=== PATIENT | female | born 1980 | race Caucasian/White ===

== ENCOUNTER 2018-07-07 12:33 | Emergency (ER) | payer BC ==
[2018-07-07 14:43] VITALS: BP 144/90
--- NOTE | 2018-07-07 15:20 | UC ---
Throat Pain/Nasal Damien HPI - HPI Summary HPI Summary: Onset yesterday of sore throat, ear pain and headache. No fever, nausea/ vomiting. No cough. Mild nasal congestion. - History of Current Complaint Chief Complaint: UCGeneralIllness Stated Complaint: SORE THROAT,BILATERAL EAR ACHE Time Seen by Provider: 07/07/18 14:40 Hx Obtained From: Patient Hx Last Menstrual Period: 06/2018 Onset/Duration: Gradual Onset, Lasting Hours, Still Present Severity: Moderate Pain Intensity: 6 Pain Scale Used: 0-10 Numeric Cough: None - Allergies/Home Medications Allergies/Adverse Reactions: Allergies Allergy/AdvReac Type Severity Reaction Status Date / Time codeine Allergy Vomiting Verified 07/07/18 14:37 Home Medications: Home Medications Fexofenadine/Pseudoephedrine [Constance-D 24 Hour Tablet] 1 each PO DAILY [History Confirmed 07/07/18] Hydroxychloroquine TAB* [Plaquenil TAB*] 200 mg PO DAILY 07/07/18 [History Confirmed 07/07/18] Magnesium Oxide [Magnesium] 400 mg PO DAILY 07/07/18 [History Confirmed 07/07/18 ] Multivitamins/Minerals TAB* [Theragran/minerals TAB*] 1 tab PO DAILY 07/07/18 [ History Confirmed 07/07/18] Norethindrone-E.estradiol-Iron [Minastrin 24 Fe Chewable Tab] 1 each PO DAILY [History Confirmed 07/07/18] lamoTRIgine TAB(*) [Lamictal TAB(*)] 350 mg PO BEDTIME 07/07/18 [History Confirmed 07/07/18] PMH/Surg Hx/FS Hx/Imm Hx - Additional Past Medical History Additional PMH: AUTOIMMUNE D/O Psychological History: Anxiety, Depression - Surgical History Surgical History: Yes Surgery Procedure, Year, and Place: lymphoma removal. choly - Family History Known Family History: Positive: Non-Contributory - Social History Alcohol Use: None Substance Use Type: None Smoking Status (MU): Never Smoked Tobacco Review of Systems All Other Systems Reviewed And Are Negative: Yes Constitutional: Positive: Negative ENT: Positive: Sore Throat, Ear Ache Respiratory: Positive: Negative Cardiovascular: Positive: Negative Gastrointestinal: Positive: Negative Neurological: Positive: Headache Physical Exam Triage Information Reviewed: Yes Appearance: Well-Appearing, No Pain Distress, Well-Nourished Vital Signs: Initial Vital Signs Temp 98.2 F 07/07/18 14:39 Pulse 82 07/07/18 14:39 Resp 16 07/07/18 14:39 BP 144/90 07/07/18 14:39 Pulse Ox 100 07/07/18 14:39 Vital Signs Reviewed: Yes Eyes: Positive: Conjunctiva Clear ENT: Positive: Hearing grossly normal, Pharynx normal, TMs normal, Hoarse voice. Negative: Tonsillar swelling, Tonsillar exudate Neck: Positive: Supple, Nontender, No Lymphadenopathy Respiratory Exam: Normal Cardiovascular Exam: Normal Abdomen Description: Positive: Soft Musculoskeletal: Positive: No Edema Neurological: Positive: Alert Psychological: Positive: Age Appropriate Behavior Skin: Negative: Rashes Throat Pain/Nasal Course/Dx - Course Course Of Treatment: NORMAL PHYSICAL EXAM TODAY. NO EVIDENCE OF STREP OR EAR INFECTION. NO INDICATION FOR ANTIBIOTIC TREATMENT TODAY. REST, HYDRATE, OTC MEDS NEEDED. FOLLOW-UP WITH PCP IF NOT IMPROVING EXPECTED OVER THE NEXT 1-2 WEEKS. - Differential Dx/Diagnosis Provider Diagnosis: Acute pharyngitis Discharge - Sign-Out/Discharge Documenting (check all that apply): Patient Departure All imaging exams completed and their final reports reviewed: No Studies - Discharge Plan Condition: Stable Disposition: HOME Patient Education Materials: Pharyngitis (ED) Referrals: James Tim MD [Primary Care Provider] - If Needed Additional Instructions: YOUR SYMPTOMS ARE LIKELY VIRALLY MEDIATED AND SHOULD RESOLVE ON THEIR OWN WITH TIME. NO INDICATION FOR ANTIBIOTICS AT PRESENT. REST, HYDRATE, OTC MEDS NEEDED. SEEK FOLLOW-UP IF YOU ARE NOT IMPROVING OVER THE NEXT 1-2 WEEKS. USE OTC AFRIN FOR NASAL CONGESTION IF NEEDED. 2 SPRAYS IN EACH NOSTRIL TWICE DAILY NEEDED. DO NOT USE FOR MORE THAN 3-4 DAYS IN A ROW TO PREVENT DEVELOPING REBOUND CONGESTION. - Billing Disposition and Condition Condition: STABLE Disposition: Home
== END 2018-07-07 15:22 | disposition home or self-care (01) ==
LOC: UCCORT 12:33
DX: J02.9 Acute pharyngitis, unspecified (principal); F41.9 Anxiety disorder, unspecified; F32.9 Major depressive disorder, single episode, unspecified; Z79.899 Other long term (current) drug therapy
CPT/HCPCS: 99211; G0463